=== PATIENT | male | born 1955 | race Caucasian/White ===

== ENCOUNTER → 2016-09-22 | Outpatient (CLI) | payer OTHER ==
[~2016-09-22] MED LIST: BACLOFEN10 MG PO; HYDROCHLOROTH12.5 M1 PO; INDERAL40 MG DOB; NEURONTIN800 MG DOB; ZANAFLEX6 MG PO
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
== END | disposition home or self-care (01) ==
LOC: CRAD 10:54
DX: M54.2 Cervicalgia (principal); M54.5 Low back pain; M51.36 Other intervertebral disc degeneration, lumbar region; M47.816 Spondylosis without myelopathy or radiculopathy, lumbar region; M50.30 Other cervical disc degeneration, unspecified cervical region; M25.78 Osteophyte, vertebrae
CPT/HCPCS: 72040; 72100

== ENCOUNTER 2017-01-28 17:44 | Emergency (ER) | payer OTHER ==
[~2017-01-28] VITALS: Ht 185.4 cm; Wt 80.7 kg
--- NOTE | ~2017-01-28 | CT71 ---
[facility] A Service of [facility] RADIOLOGY TEXT RESULTS PATIENT: GOLD THOMPSON LOCATION: [facility] : 57 UNIT #: [id number] AGE: [address]: Christiano Carmona MD SEX: M ORDER DR: [id number] [facility] [address] [place], [place] [address] [id number] E MR#: [id number] Acc #: [id number] NAME: GOLD THOMPSON : 1955 SEX: M STUDY DATE/TIME: 01/28/2017 19:28 UNIT: [facility] ROOM: STUDY DESCRIPTION: CT Head Wo Contrast Attending Physician: Christiano Carmona M.D. Ordering Physician: Christiano Carmona M.D. Primary Care Physician: Tiffanie Barrios M.D. MEDICAL IMAGING REPORT This report is preliminary unless electronic signature is present EXAM Head CT without contrast, 01/28/2017 HISTORY Headache and dizziness beginning today. Benign essential hypertension. This CT exam was performed with one or more of the following radiation dose reduction techniques: automatic exposure control, adjustment of mA and/or kV according to patient size, and iterative reconstruction. FINDINGS Multiple axial images were obtained from the skull base to vertex without intravenous contrast administration. Exam is somewhat limited by patient motion with resulting artifact. The ventricles are normal in size, shape and position. There is no midline shift. There is no mass or mass effect, hemorrhage or acute infarct. There is fluid and/or mucosal thickening in the left frontal sinus and the ethmoid air cells bilaterally characteristic of sinusitis. IMPRESSION 1. Exam is somewhat limited by patient motion with resulting artifact. 2. No acute intracranial abnormality. 3. Left frontal and bilateral ethmoid sinusitis. Dictated by... Dmitry Painting M.D. THIS IS AN ELECTRONICALLY VERIFIED REPORT Dmitry Painting M.D. at 01/29/2017 2:07 PM ROGE/yasmin [facility] A Service of [facility] RADIOLOGY TEXT RESULTS PATIENT: GOLD THOMPSON LOCATION: [facility] #: [id number] : 57 UNIT #: [id number] AGE: [address]: Christiano Carmona MD SEX: M ORDER DR: TD: 01/28/2017 22:24 JOB #: [id number] MEDICAL IMAGING REPORT Page 1 of 1 COPY
--- NOTE | ~2017-01-28 | EKG ---
PATIENT: GOLD THOMPSON UNIT #: [id number] Ventricular Rate: 54 BPM Atrial Rate: 54 BPM P-R Interval: 142 ms QRS Duration: 70 ms Q-T Interval: 438 ms QTC Calculation(Bezet): 415 ms P Cheraw: 71 degrees Calculated R Cheraw: 84 degrees Calculated T Cheraw: 75 degrees Diagnosis Line: Sinus bradycardia Diagnosis Line: Otherwise normal ECG Diagnosis Line: When compared with ECG of 07-MAY-2016 18:16, Diagnosis Line: No significant change was found Diagnosis Line: Confirmed by JOSE GARNICA MD ([id number]) on Diagnosis Line: 01/29/2017 12:34:02 AM INTERPRETING MD: DANIKA ROSSI
--- NOTE | ~2017-01-28 | ER ---
Unit #: [id number] #: [id number] Patient: GOLD ANGELO [id number] [address] [place], [place] [address] [id number] E MR#: [id number] NAME: GOLD ANGELO ROOM: Sex: M Age: 61 : 1955 Service Date: 01/28/2017 Attending Physician: Christinao Carmona M.D. Primary Care Physician: Tiffanie Barrios M.D. EMERGENCY DEPT PHYSICIAN NOTE Please see the written T-sheet for the full details of the encounter. Mr. Angelo is a 61-year-old man who was brought in by EMS after an admitted overdose of Baclofen last night. Per EMS report, the patient's sister found the patient today with an altered mental state and when she questioned him about it, he said that he had taken too many of his baclofen last night. On questioning the patient, he does admit to taking too many of his baclofen last night; however, he states it was not with intent to harm himself, but rather he felt that his prescribed dose was not effective and he was trying to take more to alleviate his symptoms. Outside from the reasonable answer to that question, the patient is very difficult to get appropriate responses from. Specifically when asked orientation questions, he simply makes a humming noise and stares blankly. Likewise when the patient was asked how many of his baclofen he took he just repeats the phrase, "I took too many Baclofen." I attempt to try and get from him why at this time he decided to come in for the overdose when it occurred last night and again his only response is "I took too many Baclofen last night." Reviewing the records the patient had a hospitalization in 05/2016 under very similar circumstances. The notes indicate that the patient was brought in by family members, altered with them, relaying that this happens from [id number] when he takes too much of his medication. The note describes almost a very similar presentation in which after an overdose the patient would not answer many questions and would only give humming responses. In contrast to that visit, the patient today does not have a fever. At that time he was documented to have one and thus a meningitis workup was also initiated. The nursing note indicate that shortly after the patient received his spinal tap, he refused all labs and demanded to be released AMA. Since at that time his mental status had returned to normal and he denied any suicidal thoughts. He was allowed to make the decision to leave against medical advice. Today the patient as mentioned, is very altered. As such, an extensive laboratory workup, as well as a head CT will be performed to determine if there is any alternative cause for his altered mental status, other than the drug overdose to which he is admitted. In the meantime, supportive care will be administered to the patient and should his mental status not resolve to baseline while he is here in the emergency department, he will likely again be admitted for observation and further testing. Dictated by... Unit #: [id number] #: [id number] Patient: GOLD ANGELO M.D. MDR/ts TD: 01/29/2017 07:33 JOB #: [id number] EMERGENCY DEPT PHYSICIAN NOTE Page 1 of 1 X Christiano Carmona MD X EMERGENCY DEPARTMENT REPORT
--- NOTE | ~2017-01-28 | CR72 ---
[facility] A Service of [facility] RADIOLOGY TEXT RESULTS PATIENT: GOLD THOMPSON LOCATION: [facility] : 57 UNIT #: [id number] AGE: [address]: Christiano Carmona MD SEX: M ORDER DR: [id number] [facility] [address] [employer] [place] [employer], [place] [address] [id number] E MR#: [id number] Acc #: [id number] NAME: GOLD THOMPSON : 1955 SEX: M STUDY DATE/TIME: 01/28/2017 18:48 UNIT: [facility] ROOM: STUDY DESCRIPTION: CR Chest Single View Portable Attending Physician: Christiano Carmona M.D. Ordering Physician: Christiano Carmona M.D. Primary Care Physician: Tiffanie Barrios M.D. MEDICAL IMAGING REPORT This report is preliminary unless electronic signature is present EXAM Single view of the chest dated 01/28/2017 COMPARISON Single view of the chest dated 06/05/2016 HISTORY Altered mental status, drug overdose, shortness of air with activity from 01/28/2017 FINDINGS Single view of the chest was obtained. A single AP portable view of the chest shows both lungs to be clear. The heart is normal in size. The mediastinal contour is normal. No significant bone abnormalities are seen. IMPRESSION Normal portable chest. Dictated by... Jewell Meng M.D. THIS IS AN ELECTRONICALLY VERIFIED REPORT Jewell Meng M.D. at 01/29/2017 1:27 PM CPR/to TD: 01/28/2017 22:23 JOB #: [id number] MEDICAL IMAGING REPORT [facility] A Service [facility] RADIOLOGY TEXT RESULTS PATIENT: GOLD THOMPSON LOCATION: [facility] : 57 UNIT #: [id number] AGE: [address]: Christiano Carmona MD SEX: M ORDER DR: Page 1 of 1 COPY
[2017-01-28 19:17] LABS: BASOPHIL# 0.1 X10e3 (0-0.3); BASOPHIL% 0.4 % (0-2.5); EOSINOPHIL# 0.5 X10e3 (0-0.7); EOSINOPHIL% 3.2 % (0.0-7.0); HEMATOCRIT 42.2 % (38.0-50.0); HEMOGLOBIN 14.3 gm/dL (13.0-16.0); LYMPHOCYTE# 2.9 X10e3 (1.0-3.5); LYMPHOCYTE% 20.6 % (17.0-45.0); MEAN CELL VOLUME 92.1 FL (83-96); MEAN CORPUSCULAR HEMOGLOBIN 31.1 PG (28-34); MEAN CORPUSCULAR HGB CONC 33.8 g/dL (30-36); MEAN PLATELET VOLUME 8.8 FL (6.5-11.5); MONOCYTE% 7.2 % (3.0-12.0); NEUTROPHIL# 9.5 X10e3 (1.5-7.1); NEUTROPHIL% 68.6 % (40-75); PLATELET COUNT 285 X10e3 (140-420); RED BLOOD COUNT 4.58 X10e (3.90-5.60); RED CELL DISTRIBUTION WIDTH 13.9 % (11.0-15.5); WHITE BLOOD COUNT 13.9 X10e3 (4.0-10.5)
[2017-01-28 19:19] LABS: DIFF IND NO
[2017-01-28 19:48] LABS: ALBUMIN SERUM 4.4 g/dL (3.5-5.0); ALKALINE PHOSPHATASE 79 U/L (32-92); ALT (SGPT) 28 U/L (10-40); AST (SGOT) 23 U/L (10-42); BILIRUBIN, DIRECT 0.1 mg/dL (0.0-0.2); BILIRUBIN,INDIRECT 0.6 mg/dL (0.0-0.9); BILIRUBIN,TOTAL 0.7 mg/dL (0.2-2.0); BLOOD UREA NITROGEN 16 mg/dL (9-23); CALCIUM SERUM 9.3 mg/dL (8.4-10.2); CARBON DIOXIDE 29 mmol/L (22-31); CHLORIDE 102 mmol/L (100-111); CREATININE SERUM 0.8 mg/dL (0.6-1.4); GLOM FILT RATE Estimated 97.1 mL/min (>60); GLUCOSE FASTING 103 mg/dL (70-110); PROTEIN TOTAL SERUM 7.9 g/dL (6.0-8.3); SODIUM 138 mmol/L (135-145)
[2017-01-28 19:50] LABS: ALCOHOL BLOOD <5 mg/dL (0)
[2017-01-28 20:48] LABS: URINE SOURCE CLEAN CATCH
[2017-01-28 20:49] LABS: URINE APPEARANCE CLEAR; URINE BILIRUBIN NEG (NEG); URINE BLOOD NEG (NEG); URINE COLOR YELLOW; URINE GLUCOSE NEG (NEG); URINE KETONE NEG (NEG); URINE LEUKOCYTE ESTERASE NEG (NEG); URINE NITRATE NEG (NEG); URINE PH 6.5 (5-8); URINE PROTEIN NEG (NEG); URINE SPECIFIC GRAVITY 1.013 (1.003-1.035); URINE UROBILINOGEN 0.2 MG/DL (NEG)
[2017-01-28 20:50] LABS: CULTURE INDICATED? NO
[2017-01-28 21:00] LABS: AMPHETAMINE NEG (NEG); BARBITURATES NEG (NEG); BENZODIAZEPINES NEG (NEG); COCAINE NEG (NEG); MARIJUANA NEG (NEG); OPIATES NEG (NEG); TRICYCLIC ANTIDEPRESSANTS NEG (NEG); U METHADONE NEG (NEG)
== END 2017-01-28 21:32 | disposition home or self-care (01) ==
LOC: CED 17:44
PROVIDERS: Emergency Medicine
DX: F19.121 Other psychoactive substance abuse with intoxication delirium (principal); R41.82 Altered mental status, unspecified; I10 Essential (primary) hypertension; F17.210 Nicotine dependence, cigarettes, uncomplicated; Z79.899 Other long term (current) drug therapy
CPT/HCPCS: 36415; 70450; 71010; 80048; 80076; 80307; 81003; 82140; 85025; 93005; 96374; 99285; G0480